=== PATIENT | female | born 1945 | race African-American/Black ===

== ENCOUNTER 2020-03-19 13:39 | Emergency (ER) | payer OTHER ==
[~2020-03-19] VITALS: Ht 167.6 cm; Wt 81.2 kg
[~2020-03-19 13:39] MED LIST: B COMPLEX-VITA1 EACH; BENADRYL25 MG PO; BENICAR40 MG PO; CELLCEPT500 MG PO; IBUPROFEN 800800 MG PO; MIRAPEX ER2.25 MG PO; MULTIVITAMINS; NORCO 5-325 TA1 EACH PO; NORVASC 5 MG TAB5 MG PO; PREDNISONE 20 M20 M1 PO; PROAIR HFA8.5 GM; PROBIOTIC1 EACH PO; SYMBICORT160 MCG/4. INH; VENTOLIN17 GM; VITAMIN D1000 UNI1 PO
[2020-03-19 16:18] LABS: URINE BILIRUBIN NEGATIVE (Negative); URINE BLOOD NEGATIVE (Negative); URINE CLARITY CLEAR; URINE COLOR YELLOW; URINE GLUCOSE-RANDOM* NEGATIVE (Negative); URINE KETONES NEGATIVE (Negative); URINE LEUKOCYTES-REFLEX TRACE (Negative); URINE NITRITE-REFLEX NEGATIVE (Negative); URINE PROTEIN (DIPSTICK) NEGATIVE (Negative); URINE SPECIFIC GRAVITY 1.015 (1.005-1.035); URINE UROBILINOGEN 0.2 E.U./dl (0.2-1.0)
[2020-03-19 16:48] LABS: BASOPHILS 0.7 % (0.0-2.0); EOSINOPHILS 1.8 % (0.0-3.0); HEMATOCRIT 31.9 % (37.0-47.0); HEMOGLOBIN 10.9 gm/dL (12.0-15.0); LYMPHOCYTES 13.7 % (24.0-44.0); MCH 31.4 pg (26.0-34.0); MCHC 34.2 g/dL (28.0-37.0); MCV 91.9 fL (80.0-100.0); MONOCYTES 3.2 % (1.0-8.0); PLATELET COUNT 391 thou/uL (150-400); POLYS 80.6 % (36.0-66.0); RBC 3.47 mil/uL (4.20-5.00); RDW 12.8 % (10.5-14.5); WBC 8.7 thou/uL (4.0-11.0)
[2020-03-19 16:53] LABS: CALCIUM 9.1 mg/dL (8.5-10.1); CREATININE 0.9 mg/dL (0.6-1.0); POTASSIUM 3.3 mmol/L (3.5-5.1)
[2020-03-19 16:59] LABS: TOTAL BILIRUBIN 0.5 mg/dL (0.2-1.0); TOTAL PROTEIN 7.7 g/dL (6.4-8.2)
[2020-03-19] MEDS ORDERED: ZITHROMAX250 MG PO (17:46)
[2020-03-19] MEDS ORDERED: AUGMENTIN 875-1 EACH PO (17:46)
[2020-03-19 19:24] VITALS: BP 164/91
--- NOTE | 2020-03-20 07:06 | EKG ---
[facility] [place] [address] ELECTROCARDIOGRAM REPORT Name: GREY GARCIA Room #: DEP [facility]#: [id number] Admission: 03/19/20 Attend Phys: Discharge: 03/19/20 Date of : 47 Report #: [id number] THIS REPORT FOR: cc: Braydon Christensen MD, Paul G. MD Santiago, Patrick MD [facility] ~ THIS REPORT FOR: //name// [facility] ED Test Date: 2020-03-19 Test Time: 16:00:59 Pat Name: GREY GARCIA Department: Room: Gender: F Tower Observer: jccarey : 1945 Requested By: Trent Cherry Order Number: [id number] MD: Rhett Thomas Measurements Intervals [place] Rate: 97 P: 66 CO: 193 QRS: 61 QRSD: 94 T: 48 QT: 372 QTc: 473 Interpretive Statements Sinus rhythm LAE, consider biatrial enlargement No previous ECG available for comparison Electronically Signed On 03-20-2020 7:06:28 SAMPLE DISTRIBUTOR by Rhett Thomas [email or web address] <ELECTRONICALLY SIGNED> By: Rhett Thomas MD, FACC 03/20/20 0706 1600 99 Rhett Thomas MD, FACC /EPI
== END 2020-03-19 19:24 | disposition home or self-care (01) ==
LOC: ER 13:39
PROVIDERS: Emergency Medicine
DX: J18.9 Pneumonia, unspecified organism (principal); I10 Essential (primary) hypertension; Z79.1 Long term (current) use of non-steroidal anti-inflammatories (NSAID); Z79.899 Other long term (current) drug therapy; Z91.041 Radiographic dye allergy status; Z20.828 Contact with and (suspected) exposure to other viral communicable diseases

== ENCOUNTER 2020-04-30 19:53 | Emergency (ER) | payer OTHER ==
[~2020-04-30] VITALS: Ht 167.6 cm; Wt 77.1 kg
[~2020-04-30 19:53] MED LIST changes: +AUGMENTIN 875-1 EACH PO; +ZITHROMAX250 MG PO
[2020-05-01] MEDS ORDERED: ULTRAM 50MG TAB50 MG PO (00:38)
[2020-05-01 01:32] VITALS: BP 131/98
== END 2020-05-01 01:25 | disposition home or self-care (01) ==
LOC: ER 19:53
DX: S32.018A Other fracture of first lumbar vertebra, initial encounter for closed fracture (principal); M54.6 Pain in thoracic spine; I10 Essential (primary) hypertension; Z91.041 Radiographic dye allergy status; Z79.899 Other long term (current) drug therapy; Z98.890 Other specified postprocedural states; W10.8XXA Fall (on) (from) other stairs and steps, initial encounter; Y93.89 Activity, other specified; Y92.89 Other specified places as the place of occurrence of the external cause; Y99.9 Unspecified external cause status

== ENCOUNTER 2020-05-02 20:58 | Inpatient (IN) | payer OTHER ==
[~2020-05-02] VITALS: Ht 167.6 cm; Wt 77.1 kg
[2020-05-02 20:58] VITALS: BP 146/95
[~2020-05-02 20:58] MED LIST changes: +ULTRAM 50MG TAB50 MG PO
[2020-05-02 21:40] LABS: ABSOLUTE NEUTROPHILS 8.3 thou/uL (1.4-8.2); BASOPHILS 0.9 % (0.0-2.0); EOSINOPHILS 5.8 % (0.0-3.0); HEMATOCRIT 34.8 % (37.0-47.0); HEMOGLOBIN 11.2 gm/dL (12.0-15.0); LYMPHOCYTES 14.1 % (24.0-44.0); MCHC 32.2 g/dL (28.0-37.0); MONOCYTES 8.4 % (1.0-8.0); PLATELET COUNT 408 thou/uL (150-400); POLYS 70.8 % (36.0-66.0); RBC 3.74 mil/uL (4.20-5.00); RDW 13.6 % (10.5-14.5); WBC 11.8 thou/uL (4.0-11.0)
[2020-05-02 21:54] LABS: ANION GAP 11 mmol/L (7-16); BUN 21 mg/dL (7-18); CALCIUM 9.4 mg/dL (8.5-10.1); CHLORIDE 102 mmol/L (98-107); CO2 25 mmol/L (21-32); CREATININE 1.3 mg/dL (0.6-1.0); GLUCOSE 110 mg/dL (74-106); POTASSIUM 3.5 mmol/L (3.5-5.1); SODIUM 138 mmol/L (136-145)
[2020-05-02 21:56] LABS: PROTIME 10.5 Seconds (9.3-11.4)
[2020-05-02 22:17] LABS: ALBUMIN 3.2 g/dL (3.4-5.0); SGOT 14 U/L (15-37); SGPT 17 U/L (30-65); TOTAL BILIRUBIN 0.3 mg/dL (0.2-1.0); TOTAL PROTEIN 7.4 g/dL (6.4-8.2); TROPONIN-I <0.06 ng/mL (<0.06)
[2020-05-03 07:42] VITALS: BP 143/73
[2020-05-03 08:56] LABS: HEMOGLOBIN 11.1 gm/dL (12.0-15.0); MCH 29.6 pg (26.0-34.0); MCHC 31.8 g/dL (28.0-37.0); MCV 93.2 fL (80.0-100.0); RBC 3.76 mil/uL (4.20-5.00); WBC 9.9 thou/uL (4.0-11.0)
[2020-05-03 09:07] LABS: CALCIUM 9.3 mg/dL (8.5-10.1); CREATININE 1.3 mg/dL (0.6-1.0); POTASSIUM 4.1 mmol/L (3.5-5.1)
--- NOTE | 2020-05-03 11:09 | NUR ---
HOUSE SUP AT BEDSIDE TO ADDRESS PT COMPLAINTS, STATED SHE WANTED ADMINISTRATION, NOT ER STAFF.
--- NOTE | 2020-05-03 12:34 | EKG ---
[place] [address] [facility] [place] [address] ELECTROCARDIOGRAM REPORT Name: GREY GARCIA Room #: 170-17 ADM IN M.R.#: [id number] Admission: 05/02/20 Attend Phys: Braydon Hernández MD Discharge: Date of : 47 Report #: [id number] [facility] ED Test Date: 2020-05-02 Test Time: 21:35:05 Pat Name: GREY GARCIA Department: Room: 170 Gender: F Authors Motivational: SHAWN : 1945 Requested By: Sai Moss Order Number: [id number] MD: Epifanio Blue Measurements Intervals [place] Rate: 100 P: 61 MI: 167 QRS: 56 QRSD: 91 T: 45 QT: 342 QTc: 442 Interpretive Statements Sinus tachycardia Baseline wander in lead(s) II,III,aVF Compared to ECG 03/19/2020 16:00:59 Heart rate has increased Electronically Signed On 05-03-2020 12:34:27 REGIONAL ACCOUNT MANAGER by Epifanio Blue [email or web address] <ELECTRONICALLY SIGNED> By: Epifanio Blue MD, [facility] 05/03/20 1234 34 34 Epifanio Blue MD, [facility] /EPI
[2020-05-03 13:09] VITALS: BP 135/74
[2020-05-03 15:15] VITALS: BP 135/74
[2020-05-03 15:32] VITALS: BP 135/74
[2020-05-03 16:20] VITALS: BP 156/87
--- NOTE | 2020-05-03 18:11 | NUR ---
Pt arrived to floor from emergency room at 1600 in stable condition.Admission hx,assessment and careplan completed.Pt signed all admission pdocument per protocol.Blood sugar check prior to dinner and tray given.Cough med given as repquested by pt.Will continue to monitor.
[2020-05-03 19:30] VITALS: BP 158/84
--- NOTE | 2020-05-04 02:43 | NUR ---
ASSUMED PT CARE AT 1900.PT C/O PAIN ON HER HEAD AND SHOULDER,PT STATED THAT SHE TOOK TYLENOL BUT NO RELIEF.FILLING AND PACKING SUPERVISOR ON DUTY NOTIFIED ORDER NOTED FOR PAIN AND SLEEPING MED.PT STILL COUGHING,PRN MED GIVEN.PT NOT COMPLIANT WITH FALL PRECAUTIONS,WAS ENCOURAGED TO CALL FOR HELP TO THE BR.PT CONT ON O2 @2L/NC.PT VERY NEEDY AND WITH A LOT OF COMPLAINTS ABOUT HOW THINGS ARE BEING DONE HERE COMPARED TO HER HOME.HS SNACKS GIVEN PER PT'S REQUEST.PT UP TO THE BSC WITH SBA,SOB WITH EXERTION NOTED.PT RESTING ON HER BED AT THIS TIME.FALL PRECAUTIONS IN PLACE,CALL LIGHT WITHIN REACH.
[2020-05-04 05:10] LABS: CREATININE 1.4 mg/dL (0.6-1.0); POTASSIUM 4.6 mmol/L (3.5-5.1)
[2020-05-04 05:25] LABS: HEMATOCRIT 28.9 % (37.0-47.0); HEMOGLOBIN 9.3 gm/dL (12.0-15.0); MCH 29.8 pg (26.0-34.0); MCHC 32.2 g/dL (28.0-37.0); MCV 92.8 fL (80.0-100.0); RBC 3.12 mil/uL (4.20-5.00); RDW 13.2 % (10.5-14.5); WBC 16.4 thou/uL (4.0-11.0)
[2020-05-04 08:14] VITALS: BP 165/91
--- NOTE | 2020-05-04 12:03 | NUR ---
Received awake on bed. Due medications given as prescribed, able to swallow meds w/o difficulty. On O2 at 2lpm via nasal cannula; pt complaining of short of air, on IV steroids and breathing treatments but patient is always on the phone talking to her friends and relatives- physician informed and aware. On telemtry; no complains and signs of chest pain, crushing sensation and heaviness. Assisted in ADLs. On heart healthy diet, tolerating well; no nausea, no vomiting and no abdominal pain noted. On blood sugar monitoring patient, taken and recorded accordingly; with sliding scale insulin ordered- given as prescribed. Falls bundle in place. With SL at R AC- intact and flushing well; on IV antibiotics. Pt upset this morning that her medications were not explained to her, during AM morning med pass, I explained each of her medications but she still was on the phone and was not paying attention, I asked her if she can pause for a while so she can know what medications she's getting but said she doesn't want to hang up and to just give her medications. To continue monitoring patient.
[2020-05-04 14:50] VITALS: BP 149/77
[2020-05-04 19:35] VITALS: BP 138/78
--- NOTE | 2020-05-05 03:46 | NUR ---
PT CARE ASSUMED WITH PT IN BED WATCHING TV AT 1900.PT IS A/O X4.PT IS UP WITH SBA X1 TO THE BSC.PT IS ON 2L OF O2 VIA NC AND USES O2 AT HOME.PT IS ACCUCHECK ACHS .PT ON A HEART HEALTHY DIET.IV ACCESS ON LT FA SL.PT COUGHING AND HAS SCHEDULED COUGH MEDICATION.FALL PRECAUTIONS IN PLACE.WILL CONTINUE TO MONITOR POC
[2020-05-05 05:42] VITALS: BP 154/93
[2020-05-05 06:13] LABS: ABSOLUTE NEUTROPHILS 18.6 thou/uL (1.4-8.2); HEMATOCRIT 32.7 % (37.0-47.0); HEMOGLOBIN 10.2 gm/dL (12.0-15.0); LYMPHOCYTES 5.2 % (24.0-44.0); MCH 29.1 pg (26.0-34.0); MCHC 31.4 g/dL (28.0-37.0); MCV 92.9 fL (80.0-100.0); MONOCYTES 1.1 % (1.0-8.0); POLYS 93.7 % (36.0-66.0); RBC 3.52 mil/uL (4.20-5.00); RDW 13.7 % (10.5-14.5); WBC 19.8 thou/uL (4.0-11.0)
[2020-05-05 06:23] LABS: PLATELET COUNT 469 thou/uL (150-400)
[2020-05-05 08:09] VITALS: BP 193/93
--- NOTE | 2020-05-05 12:29 | NUR ---
ASSUMED PT CARE THIS AM. PT CALLS APPROPRIATELY, MAKES NEEDS KNOWN. COMPLAINS OF PAIN IN HER BACK, MANAGED WITH MEDS PER EMAR. IV APTENT, MEDS INFUSED WITHOUT COMPLAINT. BP ELEVATED, GIVEN SCHEDULED MEDS PER EMAR AND BP RESPONDED WELL. FALL PRECAUTIONS IN PLACE. PT CONTINENT.
--- NOTE | 2020-05-05 15:01 | NUR ---
PT ADMITTED RELATED TO PNEUMONIA, RESPIRATORY DISTRESS, SARCOIDOSIS. CM REVIEWED CHART AND SPOKE WITH CARE TEAM. CM CALLED AND SPOKE WITH PT OVER THE PHONE THIS DAY. PT APPEARED TO BE A&O X4. CM ROLE INTRODUCED. PT INDICATED SHE SHE LIVES ALONE IN A HOUSE WITH MULTIPAL STEPS TO ENTER AND INSIDE. SHE INDICATED THAT HER DTR IS/CAN STAY WITH HER. PT INDICATED SHE HAD BEEN USING A FWW, CANE, A NEBULIZER, AND A HOME O2 THROUGH SLEEPCAIR RN ALLERGY. PT INDICATED SHE HAD HH IN THE PAST BUT CAN'T RECALL PROVIDER. PT INDICATED THAT DR. FABIOLA OLIVA ISN'T HER PCP ANYMORE BUT SHE COULDN'T TELL ME WHO WAS. THAT SHE WAS SUPPOSED TO SEE SOMEONE AT . PT INDICATED SHE PLANS TO RETURN HOME ONCE MEDICALLY STABLE. CM TO FOLLOW INDICATED WITH DC PLANNING. PT IS ON IV ABX, IV STEROIDS, AND NEBS.
[2020-05-05 17:40] VITALS: BP 154/96
[2020-05-05 20:10] VITALS: BP 166/97
--- NOTE | 2020-05-06 02:44 | NUR ---
PT CARE ASSUMED WITH PT IN BED WATCHING TV.PT IS A/O X4 AND ALSO ANXIOUS.PT IS UP X1 TO BSC.PT IS ACCUCHECK ACHS AND ON SSI.PT CALLED 911 AND SECURITY CAME UP AND PT C/O IV ON LT FA HURTING.NURSE WENT IN AND TOOK AND LOOK AT THE IV WITH NO ISSUES.IV RATE REDUCED AND PT HAD RELIEF.PT HAD TYLENOL FOR HEADACHE.PT TAKE MEDS WHOLE WITH THIN LIQUIDS WITH NO ISSUES NOTED.PT IS NSR ON TELE.WILL CONTINUE TO MONITOR POC
[2020-05-06 09:19] VITALS: BP 154/98
[2020-05-06 12:26] LABS: HEMATOCRIT 32.4 % (37.0-47.0); HEMOGLOBIN 10.3 gm/dL (12.0-15.0); MCH 29.3 pg (26.0-34.0); MCHC 31.8 g/dL (28.0-37.0); MCV 92.1 fL (80.0-100.0); RBC 3.51 mil/uL (4.20-5.00); RDW 13.7 % (10.5-14.5); WBC 13.6 thou/uL (4.0-11.0)
[2020-05-06 12:41] LABS: CALCIUM 9.3 mg/dL (8.5-10.1); CREATININE 1.2 mg/dL (0.6-1.0)
--- NOTE | 2020-05-06 13:01 | NUR ---
ASSUMED PT CARE THIS AM. PT CALLS APPROPRIATELY WHEN NEEDED. PT IS CONTINENT. IV PATENT. NOT ON OXYGEN AT THIS TIME. NO PAIN NOTED.
[2020-05-06 20:29] VITALS: BP 155/96
--- NOTE | 2020-05-07 06:28 | NUR ---
Assumed pt care at 1900. A/OX4,VSS. Up with AX1,cane to the bathroom. C/o headache at HS,medicated with Tylenol with relief reported. Continent of B&B. NSR on telemetry. Pt requested for BIPAP order obtained from Sravanthi lynn implemented. Fall precautions in place,resting quietly w/o any distress noted at this time.
[2020-05-07 07:45] VITALS: BP 157/104
--- NOTE | 2020-05-07 11:52 | EKG ---
[place] [address] [facility] [place] [address] ELECTROCARDIOGRAM REPORT Name: GREY GARCIA Room #: 454-[facility] IN M.R.#: [id number] Admission: 05/02/20 Attend Phys: Amalia Villalobos Discharge: Date of : 47 Report #: [id number] [facility] Test Date: 2020-05-07 Test Time: 09:53:49 Pat Name: GREY GARCIA Department: Room: [facility] Gender: F Legislative Director: NEREIDA : 1945 Requested By: Cherie Angela Order Number: [id number] MD: Rhett Thomas Measurements Intervals [place] Rate: 90 P: 56 NV: 158 QRS: 52 QRSD: 96 T: 44 QT: 351 QTc: 430 Interpretive Statements Sinus rhythm Probable left atrial enlargement Abnormal R-wave progression, late transition Compared to ECG 05/02/2020 21:35:05 Sinus tachycardia no longer present Electronically Signed On 05-07-2020 11:51:50 WIND OPERATIONS MANAGER by Rhett Thomas [email or web address] <ELECTRONICALLY SIGNED> By: Rhett Thomas MD, [facility] 05/07/20 1151 0953 0953 Rhett Thomas MD, FAC /EPI
--- NOTE | 2020-05-07 13:40 | 2DMMODE ---
[facility] [place] [address] 2 D/M-MODE ECHOCARDIOGRAM Name: GREY GARCIA Room #: 454-P ADM IN M.R.#: [id number] Admission: 05/02/20 Attend Phys: Amalia Villalobos Discharge: Date of : 47 Report #: [id number] THIS REPORT FOR: cc: Braydon Christensen MD, Paul G. MD Santiago, Patrick MD [facility] ~ APPROVED REPORT Study performed: 05/07/2020 12:30:07 EXAM: Comprehensive 2D, Doppler, and color-flow Echocardiogram Patient Location: Bedside Room #: 454 Status: routine BSA: 1.85 HR: 83 bpm BP: 157/104 mmHg Rhythm: NSR Other Information Study Quality: Good Indications Pulmonary Hypertension Chest Pain Hypertension/HDD Pulmonary fibrosis 2D Dimensions RVDd: 52.20 mm IVSd: 7.66 (7-11mm) LVOT Diam: 19.59 (18-24mm) LVDd: 41.96 mm PWd: 7.79 (7-11mm) Ascending Ao: 23.39 (22-36mm) LVDs: 26.72 (25-40mm) Aortic Root: 23.62 mm IVC: 24.00 mm Volumes Left Atrial Volume (Systole) Single Plane 4CH: 35.59 mL Single Plane 2CH: 34.18 mL LA ESV Index: 23.00 mL/m2 Aortic Valve AoV Peak Del.: 1.74 m/s AO Peak Gr.: 12.15 mmHg LVOT Max P.34 mmHg [facility] [address] [place] [address] 2 D/M-MODE ECHOCARDIOGRAM Name: GREY GARCIA Room #: 454-P [facility] IN ..#: [id number] Admission: 05/02/20 Attend Phys: Amalia Oropeza Discharge: Date of : 47 Report #: [id number] LVOT Max V: 1.04 m/s MONROE Vmax: 1.80 cm2 Mitral Valve E/A Ratio: 1.3 MV Decel. Time: 233.55 ms MV E Max Del.: 0.95 m/s MV A Del.: 0.75 m/s MV PHT: 67.73 ms IVRT: 83.04 ms Pulmonary Valve PV Peak Del.: 1.08 m/s PV Peak Gr.: 4.63 mmHg Pulmonary Vein P Vein S: 0.76 m/s P Vein A: 0.32 m/s P Vein D: 0.44 m/s P Vein A Dur.: 78.4 msec P Vein S/D Ratio: 1.73 Tricuspid Valve TR Peak Del.: 4.19 m/s TR Peak Gr.: 70.27 mmHg PA Pressure: 80.00 mmHg Left Ventricle The left ventricle is normal size. There is normal LV segmental wall motion. There is normal left ventricular wall thickness. The left ventricular systolic function is normal. The left ventricular ejection fraction is within the normal range. LVEF is 60-65%. The left ventricular diastolic function is abnormal. Right Ventricle Right ventricle is dilated. The right ventricular systolic function is normal. Atria The left atrium size is normal. Right atrium is dilated. Aortic Valve The aortic valve is normal in structure. No aortic regurgitation is present. There is no aortic valvular stenosis. Mitral Valve The mitral valve is normal in structure. Trace mitral regurgitation. No evidence of mitral valve stenosis. [facility] [place] [address] 2 D/M-MODE ECHOCARDIOGRAM Name: RADHAGREY Room #: 454-P [facility] IN .R.#: [id number] Admission: 05/02/20 Attend Phys: Amalia Oropeza Discharge: Date of : 47 Report #: [id number] Tricuspid Valve The tricuspid valve is normal in structure. There is moderate tricuspid regurgitation. Estimated PAP 80 mmHg. There is severe pulmonary hypertension. Pulmonic Valve The pulmonary valve is normal in structure. There is no pulmonic valvular regurgitation. Great Vessels The aortic root is normal in size. IVC is dilated and collapses >50% with inspiration. Pericardium There is no pericardial effusion. <Conclusion> Normal left ventricular size/wall thickness Ejection fraction 55% Mild right atrial enlargement Normal right ventricular size/function Color-flow Doppler study was performed of the aortic/mitral/aortic/tricuspid valve Normal aortic/mitral valve structure and function Moderate tricuspid valve insufficiency Severe pulmonary hypertension Pulmonary artery systolic pressure estimated 80 mmHg No pericardial effusion <ELECTRONICALLY SIGNED> By: Rhett Thomas MD, FACC 05/07/20 1340 39 39 Rhett Thomas MD, FACC /INF
--- NOTE | 2020-05-07 14:53 | NUR ---
CM FOLLOWED UP WITH PT THIS DAY TO INQUIRE ABOUT PCP. PT INDICATED SHE SAW GERITRICIAN AT DR. Ryan BUT DIDN'T KNOW HER FULL NAME. CM GOOGLED GERIATRICIANS AT AND IT'S DR. JUDITH RIZO. WE WILL ATTEMPT TO FIND HH PROVIDER. PT HAVING ADDITIONAL DIAGNOSTIC TESTS DONE THIS DAY. PT IS ANTICAPTED THAT PT WILL LIKELY BE MEDICALLY STABLE TO DC HOME ONCE MEDICALLY STABLE. CM TO FOLLOW INDICATED WITH DC PLANNING.
--- NOTE | 2020-05-07 15:16 | NUR ---
ASSUMED PT CARE THIS AM. PT AMBULATORY TO THE BATHROOM WITH CANE. PT ORIGINALLY COMPLAINED OF SOME BACK PAIN, BUT DECLINED THE PAIN MED THAT WAS OFFERED TO HER. PT UNDERGOIING DIAGNOSTIC TESTING TODAY. PT ON 2L OXYGEN.MEDS TAKEN WELL WITHOUT COMPLAINT. PT MAKES NEEDS KNOWN, FALL PRECAUTIONS IN PLACE.
[2020-05-07 15:56] VITALS: BP 168/82
[2020-05-07 20:22] VITALS: BP 167/84
--- NOTE | 2020-05-08 02:58 | NUR ---
ASSUMED CARE OF PT AT 1900. PT IS A/O X4 AND IS UP SBA WITH CAN TO THE BR. 2 LITERS O2 NC AND IS GIVEN SCHEDULED BRTX. CPAP HAS BEEN DC'D AND REMOVED FROM PT ROOM. TELE DISCONTINUED. C/O PAIN TO BACK AND INSOMNIA. PRN PAIN AND SLEEP MEDICATION GIVEN DIRECTED. 4 UNITS OF INSULIN GIVEN PRESCRIBED AT HS FOR PT BLOOD SUGAR. NO C/O CHEST PAIN THIS SHIFT. FALL PRECAUTIONS IMPLEMENTED, CALL LIGHT IS WITHIN REACH. WILL CONTINUE TO MONITOR.
[2020-05-08] MEDS ORDERED: LOPRESSOR50 PO (11:07)
[2020-05-08] MEDS ORDERED: BENZONATATE100 MG PO (11:07)
[2020-05-08] MEDS ORDERED: ALPRAZOLAM 0.50.5 M1 PO (11:07)
[2020-05-08] MEDS ORDERED: SERTRALINE HCL50 MG PO (11:07)
[2020-05-08] MEDS ORDERED: BUSPAR30 MG PO (11:07)
[2020-05-08] MEDS ORDERED: IPRAT-ALBUT 0.5-3 ML INH (11:07)
[2020-05-08] MEDS ORDERED: LASIX 20 MG TAB20 MG PO ×2 (11:07→16:34)
[2020-05-08] MEDS ORDERED: BUSPIRONE HCL15 MG PO (11:07)
[2020-05-08] MEDS ORDERED: ACETAMINOPHEN325 M1 PO (11:07)
[2020-05-08] MEDS ORDERED: CARDIZEM CD 18180 M3 PO (11:07)
[2020-05-08] MEDS ORDERED: PREDNISONE 20 M20 MG PO (11:09)
[2020-05-08] MEDS ORDERED: CEFDINIR300 MG PO (11:09)
[2020-05-08 12:20] VITALS: BP 160/95
[2020-05-08 12:28] VITALS: BP 160/95
[2020-05-08 14:27] VITALS: BP 160/95
--- NOTE | 2020-05-08 15:21 | NUR ---
PT DISCHARGING TODAY TO HOME WITH FAXED REFERRAL TO [facility] SPOKE WITH JOSEFA IN ADM SHE RECEIVED REFERRAL AND WILL ACCEPT. FAXED DC ORDERS/SUMMARY RECEIVED CONFIRMATION THEY WILL ARRANGE VISITS WITH PT.
--- NOTE | 2020-05-08 15:46 | NUR ---
ASSUMED CARE OF PATIENT AT SHIFT CHANGE. ASSESSMENT CHARTED. MEDS ADMINISTERED PER EMAR. VSS. PATIENT IS A&OX4 AND MAKES NEEDS KNOWN. DENIES PAIN. PATIENT IS ON 2L NC AND SATTING AT 97%. DENIES SOA AT REST. PATIENT UP TO BSC X1 ASSIST. PROVIDER SPOKE W PATIENT AND CLEARED HER FOR D/C. PATIENT IS CURRENTLY WAITING ON TRANSPORTATION. IV DISCONTINUED, CLOTHES W PATIENT. VOICED NO OTHER NEEDS AT TIME OF DISCHARGE. WILL CONTINUE TO MONITOR PATIENT UNTIL OFF UNIT
--- NOTE | 2020-05-08 16:15 | NUR ---
CARE TEAM INDICATED PT IS MEDICALLY STABLE TO DC HOME THIS DAY. [facility] CAN ACCEPT PT FOR SERVICES UPON DC. CM SPOKE WITH PT AND NOTIFIED HER OF THIS. PT INDICATED SHE DIDN'T HAVE PORTABLE O2 WITH HER AND THAT SHE NEEDED TRANSPORT HOME THIS DAY. [facility] ARRANGED WITH O2 SENIOR MAINFRAME PROGRAMMER ANALYST BETWEEN [id number]. PT AWARE AND AGREEABLE. NO OTHER CM INTERVENTION INDICATED. CASE CLOSED.
== END 2020-05-08 17:56 | disposition home health service (06) | DRG 871 ==
LOC: ER 20:58 → 4W 23:10 → EROBS 23:10 → 4W 05-03 15:32
PROVIDERS: Emergency Medicine; Hospitalist; Internal Medicine Pulmonary Disease; Nurse Practitioner Family; ADMIT Hospitalist; ATTEND Hospitalist
PROC: 5A09357 Assistance with Respiratory Ventilation, Less than 24 Consecutive Hours, Continuous Positive Airway Pressure (ICD-10-PCS; principal; 2020-05-06)
PROC: 5A09357 Assistance with Respiratory Ventilation, Less than 24 Consecutive Hours, Continuous Positive Airway Pressure (ICD-10-PCS; 2020-05-08)
DX: A41.9 Sepsis, unspecified organism (principal); J18.9 Pneumonia, unspecified organism; J96.21 Acute and chronic respiratory failure with hypoxia; N17.9 Acute kidney failure, unspecified; D86.0 Sarcoidosis of lung; Z20.822 Contact with and (suspected) exposure to COVID-19; G25.81 Restless legs syndrome; F41.9 Anxiety disorder, unspecified; N18.32 Chronic kidney disease, stage 3b; R07.89 Other chest pain; I12.9 Hypertensive chronic kidney disease with stage 1 through stage 4 chronic kidney disease, or unspecified chronic kidney disease; I27.21 Secondary pulmonary arterial hypertension; J47.9 Bronchiectasis, uncomplicated; J84.10 Pulmonary fibrosis, unspecified; Z91.041 Radiographic dye allergy status; Z99.81 Dependence on supplemental oxygen
CPT/HCPCS: 10045; 10047

== ENCOUNTER → 2020-12-18 | Outpatient (CLI) | payer OTHER ==
[~2020-12-18] MED LIST changes: +ACETAMINOPHEN325 M1 PO; +ALPRAZOLAM 0.50.5 M1 PO; +BENZONATATE100 MG PO; +BUSPAR30 MG PO; +BUSPIRONE HCL15 MG PO; +CARDIZEM CD 18180 M3 PO; +CEFDINIR300 MG PO; +IPRAT-ALBUT 0.5-3 ML INH; +LASIX 20 MG TAB20 MG PO; +LOPRESSOR50 PO; +PREDNISONE 20 M20 MG PO; +SERTRALINE HCL50 MG PO
== END ==
LOC: RAD 14:17
PROVIDERS: ATTEND Internal Medicine Pulmonary Disease
DX: J98.4 Other disorders of lung (principal)

== ENCOUNTER 2021-06-11 10:17 | Emergency (ER) | payer OTHER ==
[~2021-06-11] VITALS: Ht 167.6 cm; Wt 63.5 kg
--- NOTE | ~2021-06-11 | EMS ---
[facility] [address] [place] [address] EMS Patient Care Report Name: GREY GARCIA Room #: REG Jose#: [id number] Admission: 06/11/21 Attend Phys: Discharge: Date of : 47 Report #: [id number] THIS REPORT FOR: //name// Report Transmitted: 06/11/2021 10:27 EMS Care Summary [place], [place]/[facility] Incident [id number] @ 06/11/2021 09:36 Incident Location [id number] [place], [place] [id number] Patient GREY GARCIA Female, 75 Years 1945 Patient Address [id number] [place] [address] Patient History Hypertension (HTN),Pneumonia,Sarcoidosis, Patient Allergies No known allergies, Chief Complaint thoracic back pain Disposition Transported No Lights/[place] Dispatch Reason Back Pain (Non-Traumatic) Transported To [facility] Narrative pt found ambulatory in home, NAD. she is a&o, states she has "felt bad for 2-3 days". she c/o her thoracic back hurting. pain radiates almost down to kidneys. no traumatic injury. she states she has had the pain off and on before. she also c/o headache. she has had 2 covid shots. she is on 02 PRN. she is ambulatory around the home collecting items she wants to take w/ her, ie. books, chargers, iPad, crossword puzzles, etc. pt able to seat self on [facility] [address] [place] [address] EMS Patient Care Report Name: GREY GARCIA Room #: REG [facility]#: [id number] Admission: 06/11/21 Attend Phys: Discharge: Date of : 47 Report #: [id number] cot, tx as listed in flow chart. pt kamilahq emily at [facility] transport w/o change. report to staff rm 10. Initial Vitals @10:11P: 84,R: 18,BP: 155/78,SpO2: 91, @10:00P: 93,R: 18,BP: 174/97,Pain: 5/10,GCS: 15,SpO2: 93,Revised Trauma: 12, Assessments @09:45MENTAL:No Abnormalities,SKIN:No Abnormalities,HEENT:Head/Face: Other,LUNG SOUNDS:ABDOMEN:PELVIS//GI:EXTREMITIES:PULSE:Radial: 2+ Normal,NEURO:No Abnormalities, Impression Back Pain Procedures @09:45 ALS Assessment Response: Unchanged @10:00 3-Lead ECG Response: Unchanged @09:58 Stretcher Response: Unchanged @10:03 Oxygen FlowRate: 2 Device: Nasal Cannula (NC) Response: UnchangedSucceeded Timeline 09:31,Call Received 09:31,Dispatch Notified 09:36,Dispatched 09:37,En Route 09:44,On Scene 09:45,At Patient 09:45,ALS Assessment,Response: Unchanged :58,Stretcher,Response: Unchanged 10:00,BP: 174/97 M,PULSE: 93,RR: 18 R,SPO2: 93 Ox,ETCO2: ,BG: ,PAIN: 5,GCS: 15, 10:00,3-Lead ECG,Response: Unchanged 10:01,Depart Scene 10:03,Oxygen FlowRate: 2 Device: Nasal Cannula (NC) Response: UnchangedSucceeded, 10:11,BP: 155/78 M,PULSE: 84,RR: 18 R,SPO2: 91 Ox,ETCO2: ,BG: ,PAIN: ,GCS: , 10:13,At Destination 10:36,Call Closed Disclaimer v1.1 Copyright 2021 [employer] This EMS Care Summary contains data elements from the applicable legal record (which may be displayed differently). It is designed to provide pertinent information for the following purposes: continuity of care, clinical quality, [address] [address] EMS Patient Care Report Name: RADHAGREY Room #: REG ER [facility]#: [id number] Admission: 06/11/21 Attend Phys: Discharge: Date of : 47 Report #: [id number] and state data reporting. The complete legal record is available to ED staff and administrators of the receiving hospital in [employer]'s Patient Tracker. All data is provided "as is."
--- NOTE | ~2021-06-11 | EMS ---
[facility] [address] [place] [address] EMS Patient Care Report Name: GREY GARCIA Room #: DEP Jose#: [id number] Admission: 06/11/21 Attend Phys: Discharge: 06/11/21 Date of : 47 Report #: [id number] THIS REPORT FOR: //name// Report Transmitted: 06/11/2021 14:51 EMS Care Summary [place], [place]/[facility] Incident [id number] @ 06/11/2021 09:36 Incident Location [id number] [place] [address] Patient GREY GARCIA Female, 75 Years 1945 Patient Address [address] [place] [address] Patient History Hypertension (HTN),Pneumonia,Sarcoidosis, Patient Allergies No known allergies, Chief Complaint thoracic back pain Disposition Transported No Lights/[place] Dispatch Reason Back Pain (Non-Traumatic) Transported To [facility] Narrative pt found ambulatory in home, NAD. she is a&o, states she has "felt bad for 2-3 days". she c/o her thoracic back hurting. pain radiates almost down to kidneys. no traumatic injury. she states she has had the pain off and on before. she also c/o headache. she has had 2 covid shots. she is on 02 PRN. she is ambulatory around the home collecting items she wants to take w/ her, ie. books, chargers, iPad, crossword puzzles, etc. pt able to seat self on [facility] [address] [place] [address] EMS Patient Care Report Name: GREY GARCIA [facility] [id number] Admission: 06/11/21 Attend Phys: Discharge: 06/11/21 Date of : 47 Report #: [id number] cot, tx as listed in flow chart. pt req emily at [facility] transport w/o change. report to staff rm 10. Initial Vitals @10:11P: 84,R: 18,BP: 155/78,SpO2: 91, @10:00P: 93,R: 18,BP: 174/97,Pain: 5/10,GCS: 15,SpO2: 93,Revised Trauma: 12, Assessments @09:45MENTAL:No Abnormalities,SKIN:No Abnormalities,HEENT:Head/Face: Other,LUNG SOUNDS:ABDOMEN:PELVIS//GI:EXTREMITIES:PULSE:Radial: 2+ Normal,NEURO:No Abnormalities, Impression Back Pain Procedures @09:45 ALS Assessment Response: Unchanged @10:00 3-Lead ECG Response: Unchanged @09:58 Stretcher Response: Unchanged @10:03 Oxygen FlowRate: 2 Device: Nasal Cannula (NC) Response: UnchangedSucceeded Timeline 09:31,Call Received 09:31,Dispatch Notified 09:36,Dispatched 09:37,En Route 09:44,On Scene 09:45,At Patient 09:45,ALS Assessment,Response: Unchanged 09:58,Stretcher,Response: Unchanged 10:00,BP: 174/97 M,PULSE: 93,RR: 18 R,SPO2: 93 Ox,ETCO2: ,BG: ,PAIN: 5,GCS: 15, 10:00,3-Lead ECG,Response: Unchanged 10:01,Depart Scene 10:03,Oxygen FlowRate: 2 Device: Nasal Cannula (NC) Response: UnchangedSucceeded, 10:11,BP: 155/78 M,PULSE: 84,RR: 18 R,SPO2: 91 Ox,ETCO2: ,BG: ,PAIN: ,GCS: , 10:13,At Destination 10:36,Call Closed Disclaimer v1.1 Copyright 2021 [employer] This EMS Care Summary contains data elements from the applicable legal record (which may be displayed differently). It is designed to provide pertinent information for the following purposes: continuity of care, clinical quality, [address] [address] EMS Patient Care Report Name: GREY GARCIA Room #: DEP Jose#: [id number] Admission: 06/11/21 Attend Phys: Discharge: 06/11/21 Date of : 47 Report #: [id number] and state data reporting. The complete legal record is available to ED staff and administrators of the receiving hospital in [employer]'s Patient Tracker. All data is provided "as is."
[2021-06-11 11:39] LABS: ABSOLUTE NEUTROPHILS 5.4 thou/uL (1.4-8.2); BASOPHILS 1.6 % (0.0-2.0); EOSINOPHILS 6.3 % (0.0-3.0); HEMATOCRIT 32.4 % (37.0-47.0); HEMOGLOBIN 10.5 gm/dL (12.0-15.0); LYMPHOCYTES 17.8 % (24.0-44.0); MCH 28.3 pg (26.0-34.0); MCHC 32.3 g/dL (28.0-37.0); MCV 87.7 fL (80.0-100.0); MONOCYTES 7.5 % (1.0-8.0); PLATELET COUNT 448 thou/uL (150-400); POLYS 66.8 % (36.0-66.0); RDW 15.5 % (10.5-14.5); WBC 8.1 thou/uL (4.0-11.0)
[2021-06-11 11:43] LABS: CALCIUM 9.1 mg/dL (8.5-10.1); POTASSIUM 4.1 mmol/L (3.5-5.1)
[2021-06-11 12:25] LABS: URINE BILIRUBIN NEGATIVE (Negative); URINE BLOOD NEGATIVE (Negative); URINE CLARITY CLEAR; URINE COLOR YELLOW; URINE GLUCOSE-RANDOM* NEGATIVE (Negative); URINE KETONES NEGATIVE (Negative); URINE LEUKOCYTES-REFLEX TRACE (Negative); URINE NITRITE-REFLEX NEGATIVE (Negative); URINE PROTEIN (DIPSTICK) NEGATIVE (Negative); URINE UROBILINOGEN 0.2 E.U./dl (0.2-1.0)
--- NOTE | 2021-06-11 12:45 | EKG ---
[place] [address] [facility] [place] [address] ELECTROCARDIOGRAM REPORT Name: GREY GARCIA [facility]: [id number] Admission: 06/11/21 Attend Phys: Discharge: Date of : 47 Report #: [id number] [facility] ED Test Date: 2021-06-11 Test Time: 10:51:07 Pat Name: GREY GARCIA Department: Room: Gender: F Event Sales Manager: jadiel flores : 1945 Requested By: Theo Thornton Order Number: [id number] MD: Get Isaacs Measurements Intervals [place] Rate: 92 P: 66 SC: 189 QRS: 77 QRSD: 87 T: 44 QT: 363 QTc: 450 Interpretive Statements Sinus rhythm Consider left ventricular hypertrophy Compared to ECG 05/07/2020 09:53:49 No significant changes Electronically Signed On 06-11-2021 12:45:07 RAIL MANAGER by Get Isaacs [email or web address] <ELECTRONICALLY SIGNED> By: Get Isaacs MD 06/11/21 1245 1051 1051 Get Isaacs MD /DASIA
[2021-06-11 13:10] VITALS: BP 157/76
== END 2021-06-11 13:10 | disposition home or self-care (01) ==
LOC: ER 10:17
PROVIDERS: Student in an Organized Health Care Education/Training Program
DX: R05.1 Acute cough (principal); R53.83 Other fatigue; G89.29 Other chronic pain; M54.50 Low back pain, unspecified; Z20.822 Contact with and (suspected) exposure to COVID-19